=== PATIENT | male | born 1960 | race Caucasian/White ===

== ENCOUNTER 2020-03-21 18:26 | Emergency (ER) | payer OTHER ==
[~2020-03-21] VITALS: Ht 170.2 cm; Wt 85.3 kg
[2020-03-21 19:30] LABS: BASOPHILS # (AUTO) 0.02 x10^3/uL (0-0.1); BASOPHILS % (AUTO) 0 % (0-1); EOSINOPHILS # (AUTO) 0.27 x10^3/uL (0-0.4); EOSINOPHILS % (AUTO) 4 % (1-7); LYMPHOCYTES % (AUTO) 16 % (22-44); MD NO; MEAN CORPUSCULAR HEMOGLOBIN 29.7 pg (27.5-34.5); MEAN CORPUSCULAR HGB CONC 33.1 g/dL (33.2-36.2); MEAN CORPUSCULAR VOLUME 89.8 fL (81-97); MEAN PLATELET VOLUME 7.8 fL (7.4-10.4); MONOCYTES % (AUTO) 7 % (2-9); NEUTROPHILS % (AUTO) 74 % (42-75); PLATELET COUNT 326 x10^3/uL (130-400); RED BLOOD COUNT 5.21 x10^6/uL (4.38-5.82); RED CELL DISTRIBUTION WIDTH 13.6 % (9.4-14.8)
--- NOTE | 2020-03-21 19:33 | NUR ---
Pt states pain and swelling in R jaw, index finger, and ankle. Pt denies trauma. Ongoing for three weeks.
[2020-03-21 19:43] LABS: ALBUMIN 2.9 g/dL (3.4-5.0); ANION GAP 6 mmol/L (5-15); CALCIUM 9.5 mg/dL (8.5-10.1); CHLORIDE 107 mmol/L (98-107)
[2020-03-21 19:47] LABS: ALANINE AMINOTRANSFERASE 22 U/L (12-78); ALKALINE PHOSPHATASE 87 U/L (45-117); BILIRUBIN,TOTAL 0.2 mg/dL (0.2-1.0); TOTAL PROTEIN 7.9 g/dL (6.4-8.2)
--- NOTE | 2020-03-21 20:25 | NUR ---
Pt tstates no pain at this time. Updated on POC. Waiting for CT
[2020-03-21] MEDS ORDERED: KETOROLAC 30 MG/1 ML ONE (21:15)
[2020-03-21 21:28] VITALS: BP 159/118
--- NOTE | 2020-03-21 21:29 | NUR ---
Medicated for pain with Toradol prior to DC
[2020-03-21] MEDS ORDERED: KETOROLAC 30 MG/1 ML IM ONE (21:30)
== END 2020-03-21 21:31 | disposition home or self-care (01) ==
LOC: ED 18:56
DX: L03.011 Cellulitis of right finger (principal); M25.571 Pain in right ankle and joints of right foot; K08.89 Other specified disorders of teeth and supporting structures; R00.0 Tachycardia, unspecified; Z21 Asymptomatic human immunodeficiency virus [HIV] infection status
CPT/HCPCS: 29515; 36415; 73610; 80053; 85025; 96372; 99284; J1885